=== PATIENT | male | born 1960 | race Caucasian/White ===

== ENCOUNTER 2017-07-16 22:58 | Emergency (ER) | payer OTHER ==
[2017-07-16 23:31] LABS: BASOPHILS % 0.6 (0.0-1.5); EOSINOPHILS % 1.6 % (0.0-6.8); MEAN CORPUSCULAR HEMOGLOBIN 29.9 pg (28.0-34.0); MEAN CORPUSCULAR VOLUME 87.8 fl (80.0-100.0); MONOCYTES % 3.7 % (0.0-11.0); NEUTROPHILS # 10.4 # k/uL (1.4-7.7)
[2017-07-16 23:36] LABS: eGFR (African) > 60; eGFR (Non-African) > 60
[2017-07-16] MEDS ORDERED: ASPIRIN 81 MG CHEW TAB PO ONE (23:46)
[2017-07-16] MEDS: NITROGLYCERIN 0.4 MG TAB.SUBL SL ONE ×3 (23:47→23:58)
[2017-07-16] MEDS ORDERED: 0.9 % SODIUM CHLORIDE 1,000 ML IV ONE (23:49)
--- NOTE | 2017-07-16 23:49 | ED Physician Documentation ---
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 denies: vomiting, tachypnea, hypotension, palpitations, weakness Worsened By: deep breaths Relieved By: sitting up Further Comments: yes (57 year old male patient presents with complaints of chest pain. Patient states he was at a libertarian when he began having chest pain. reports patient drank 4-5 beers. Patient reports pain is worse with a deep breath, c/o nausea "on the way here, it's gone now.", denies SOB, denies radiation to jaws or arms.) - ROS CONST: none MS/LYMPH: none GI/: nausea. denies: vomiting, diarrhea, black stools EYES/ENT: none SKIN/ENDO: none NEURO/PSYCH: none - PAST HX ID risk factors: hypertension, hyperlipidemia TAD/AAA risk factors: none Neuro deficit: none GI disease: GERD Lung disease: none Allergies/Adverse Reactions: Allergies Allergy/AdvReac Type Severity Reaction Status Date / Time No Known Allergies Allergy Unverified 07/16/17 23:09 Home Medications: Ambulatory Orders Medication Instructions Recorded Lisinopril [Zestril] mg PO 07/16/17 Metformin HCl [Metformin HCl ER] mg PO 07/16/17 Ranitidine HCl mg PO 07/16/17 Sitagliptin Phosphate [Januvia] mg PO 07/16/17 - SOCIAL HX Smoking History: cigarettes - FAMILY HX Family HX: none - VITAL SIGNS Vital Signs: Vital Signs Temp Pulse Resp BP Pulse Ox 97.1 F L 110 H 28 H 107/76 99 07/16/17 22:58 07/16/17 23:12 07/16/17 22:58 07/16/17 22:58 07/16/17 23:12 - REVIEWED ASSESSMENTS Nursing Assessment Reviewed: Yes Vitals Reviewed: Yes Progress - Progress Progress: On arrival chest reproducible and patient reports worse with deep breath. HR 115, diaphoretic. Will complete cardiac workup to rule out ID. EKG with ST, rate 113, non-specific changes; Q waves in anterior leads 1155 trop .14, WBC 14 - Patient rates pain 01/23 - 324mg Aspirin given and 1st nitro. Reviewed lab results with patient and . recommended transfer to cardiology, patient prefers [place]. Nitro x 3 doses; pain remains 01/23 Call to [place] - discussed with LESLIE Gonzales Medicated with morphine IV and metoprolol 5mg IV - HR down to 88 MP 97/51, pain at 09/[address] Nieves; patient accepted for transfer. Orders for lovenox. Patient requesting quietly. BP 92/55; HR 86. Patient updated on plan of care and accepted transfer. - EKG/XRAY/CT EKG: rhythm (EKG with ST, rate 113, non-specific changes. Q waves in anterior leads) ED Results Lab/Radiology - Lab Results Lab Results: Lab Results 07/16/17 07/16/17 07/16/17 23:20 23:20 23:20 WBC 14.00 K/ul H K/ul (4.00-12.00) RBC 4.93 M/ul M/ul (3.90-5.20) Hgb 14.8 g/dL g/dL (12.0-18.0) Hct 43.3 % % (37.0-53.0) MCV 87.8 fl fl (80.0-100.0) MCH 29.9 pg pg (28.0-34.0) MCHC 34.1 g/dL g/dL (30.0-36.0) RDW 14.1 % % (11.3-14.3) Plt Count 156 K/mm3 K/mm3 (130-400) Neut % (Auto) 74.5 % % (39.0-79.0) Lymph % (Auto) 18.3 % % (16.0-50.0) Iron % (Auto) 3.7 % % (0.0-11.0) Eos % (Auto) 1.6 % % (0.0-6.8) Baso % (Auto) 0.6 (0.0-1.5) Neut # (Auto) 10.4 # k/uL H # k/uL (1.4-7.7) Lymph # (Auto) 2.6 # k/uL # k/uL (0.6-4.0) Iron # (Auto) 0.5 # k/uL # k/uL (0.0-0.9) Eos # (Auto) 0.2 # k/uL # k/uL (0.0-0.6) Baso # (Auto) 0.1 # k/uL # k/uL (0.0-0.5) Reactive Lymphs % 1.3 % % (0.0-5.0) Reactive Lymphs # 0.2 # k/uL # k/uL (0.0-0.8) Sodium 132 mmol/L L mmol/L (136-145) Potassium 3.9 mmol/L mmol/L (3.5-5.1) Chloride 98 mmol/L mmol/L (98-107) Carbon Dioxide 24 mmol/L mmol/L (22-30) BUN 18 mg/dL mg/dL (9-20) Creatinine 0.60 mg/dL L mg/dL (0.66-1.25) Estimated Creat Clear 246 Est GFR ( Amer) > 60 (60 - ) Est GFR (Non-Af Amer) > 60 (60 - ) Glucose 252 mg/dL H mg/dL (74-106) Calcium 9.6 mg/dL mg/dL (8.4-10.2) Total Bilirubin 0.2 mg/dL mg/dL (0.2-1.3) AST 24 U/L U/L (15-46) ALT 50 U/L U/L (13-69) Alkaline Phosphatase 107 U/L U/L (38-126) Creatine Kinase 40 U/L L U/L (55-170) Troponin I 0.14 ng/mL H ng/mL (0.03-0.06) Total Protein 7.8 g/dL g/dL (6.3-8.2) Albumin 4.1 g/dL g/dL (3.5-5.0) - Radiology Radiology Impressions: PA and lateral chest Clinical history: CHEST PAIN, DYSPNEA X 1 DAY Findings: Examination of the chest in PA and lateral views with no prior films for comparison demonstrates hazy interstitial infiltrates in the lung bases. Cardiovascular and mediastinal silhouettes are within normal limits. Monitor leads superimpose the chest. Impression: 1. Hazy interstitial infiltrates in the lung bases. 2. Aortic atherosclerosis. Electronically signed on Jul 17, 2017 12:07:49 AM PARAFFINER by: Migue Milan - Orders Orders: ED Orders Category Date Time Status Continuous EKG monitoring Q30M Care 07/16/17 23:12 Active Continuous Pulse Oximetry Q30M Care 07/16/17 23:[address] IV Lock 1T Care 07/16/17 23:12 Completed CHEST 2 VIEW [CHEST P.A.&LAT 2 VIEWS] [RAD] Stat Exams 07/16/17 Ordered CBC/PLATELET/DIFF Routine Lab 07/16/17 23:20 Completed CMP Routine Lab 07/16/17 23:20 Completed CREATINE KINASE Routine Lab 07/16/17 23:20 Completed TROPONIN I (cTnI) Stat Lab 07/16/17 23:20 Completed Aspirin Med 07/16/17 23:46 Discontinued 324 mg PO NOW ONE Nitroglycerin [Nitroquick] Med 07/16/17 23:46 Discontinued 0.4 mg SL .STK-MED ONE Oxygen Daily Oxygen 07/16/17 23:15 Ordered EKG WITH COMPARISON Stat Ther 07/16/17 23:10 Ordered Chest Pain Physical Exam - EXAM General Appearance: mild distress EENT: eye inspection normal, ENT inspection normal, pharynx normal, no signs of dehydration, JEFF, no nystagmus, TM's nml Respiratory: no resp. distress, nml breath sounds, decreased air movement (bases ), other (c/o chest discomfort with palpation) CVS: no murmur, no gallop, no friction rub, pulses full, pulses equal, tachycardia Abdomen: soft, no organomegaly, normal bowel sounds, no abdominal bruit, no distension, other (protuberant) Skin: normal color, diaphoresis Extremities: non-tender, normal range of motion, no evidence of injury, no edema , J, ED EDUCATIONAL AIDE Neuro: oriented X3, CN's nml as tested, motor nml, sensation nml, mood/affect nml Discharge Clincal Impression: Acute ID Qualifiers: Myocardial infarction ST status: non-ST elevation myocardial infarction Qualified Code(s): I21.4 - Non-ST elevation (NSTEMI) myocardial infarction Referrals: Primary Doctor,No [Primary Care Provider] - 2 Days Condition: Stable Disposition: 02 XFER [id number] HOSP Decision to Admit: [id number] Decision Time: 00:21
[2017-07-16] MEDS ORDERED: NITROGLYCERIN 0.4 MG TAB.SUBL SL ONE ×3 (23:50→23:58)
[2017-07-16] MEDS ORDERED: METOPROLOL TARTRATE 5 MG/5 ML VIAL IVP ONE (23:59)
[2017-07-16] MEDS ORDERED: MORPHINE SULFATE 4 MG/ML PREFILLED SYR IVP ONE (23:59)
[2017-07-17] MEDS ORDERED: ENOXAPARIN SODIUM 100 MG/ML DISP.SYRIN SQ ONE ×2 (00:28)
[2017-07-17 00:57] VITALS: BP 92/57
[2017-07-17] MEDS: NITROGLYCERIN 0.4 MG TAB.SUBL SL ONE (01:01)
--- NOTE | 2017-07-17 05:52 | Diagnostic Imaging Report ---
[facility] [address] [facility].[address] [id number] Report Submission Date: Jul 17, 2017 12:07:49 AM RN PRIVATE DUTY Patient Study Name: MARY CARMEN LUGO Date: Jul 16, 2017 11:30:53 PM RN PRIVATE DUTY Modality Type: CR Gender: M Description: CHEST : 62 Institution: [facility] Physician: HAILEY GTZ (ADJUNCT WRITING INSTRUCTOR) - ER PA and lateral chest Clinical history: CHEST PAIN, DYSPNEA X 1 DAY Findings: Examination of the chest in PA and lateral views with no prior films for comparison demonstrates hazy interstitial infiltrates in the lung bases. Cardiovascular and mediastinal silhouettes are within normal limits. Monitor leads superimpose the chest. Impression: 1. Hazy interstitial infiltrates in the lung bases. 2. Aortic atherosclerosis. Electronically signed on Jul 17, 2017 12:07:49 AM RN PRIVATE DUTY by: Migue AARON
== END 2017-07-17 00:45 | disposition short-term general hospital (02) ==
LOC: ED 22:58
DX: I21.4 Non-ST elevation (NSTEMI) myocardial infarction (principal); I70.0 Atherosclerosis of aorta; F17.210 Nicotine dependence, cigarettes, uncomplicated
CPT/HCPCS: 71020; 80053; 82550; 84484; 85025; 93005; 96361; 96372; 96374; 96375; 99284; J1650; J2270; J3490; J7030; S1016